=== PATIENT | male | born 1965 | race Caucasian/White ===

== ENCOUNTER → 2020-08-05 11:48 | Outpatient (BNVA) | payer OTHER, SELFPAY | PROVIDERS: PCP Internal Medicine; Visit Provider Physician Assistant | DX: Z76.89 Persons encountering health services in other specified circumstances (principal) ==

== ENCOUNTER 2020-08-25 06:23 | Outpatient (REF) | payer OTHER, SELFPAY ==
[2020-08-25 07:01] LABS: MANUAL DIFF FLAG NO
[2020-08-25 07:05] LABS: Basophils Percent Auto 0.4 % (0-2); Eosinophils Absolute Auto 0.1 X10*3/uL (0.0-0.4); Eosinophils Percent Auto 1.2 % (0-4); Hematocrit 37.1 % (42-52); Hemoglobin 12.6 g/dl (14.0-18.0); Imm Gran Abs Auto 0.04 X10*3/uL (0.00-0.03); Imm Gran Pct Auto 0.6 % (0.0-0.4); Lymphocytes Absolute Auto 1.6 X10*3/uL (1.2-4.9); Lymphocytes Percent Auto 22.6 % (20-40); Mean Corpuscular Hemoglobin 29.5 pg (27.0-33.0); Mean Corpuscular Volume 86.9 fL (80-98); Mean Platelet Volume 8.9 fL (9.4-12.4); Monocytes Absolute Auto 0.4 X10*3/uL (0.1-1.2); Monocytes Percent Auto 5.8 % (2-11); Neutrophils Absolute Auto 4.8 X10*3/uL (2.0-8.3); Neutrophils Percent Auto 69.4 % (45-73); Platelet Count 459 X10*3/uL (160-400); Red Blood Count 4.27 X10*6/uL (4.60-5.80); Red Cell Distribution Width 12.2 % (11.0-16.0); White Blood Count 6.9 X10*3/uL (4.8-10.8)
[2020-08-25 07:31] LABS: Alanine Aminotransferase 55 U/L (0-40); Albumin Level 4.5 g/dL (3.5-5.0); Alkaline Phosphatase 65 U/L (39-117); Aspartate Amino Transferase 20 U/L (5-37); Bilirubin Direct 0.2 mg/dL (0.0-0.5); Bilirubin Total 0.6 mg/dL (0.0-1.0); Total Protein 8.2 g/dL (6.5-8.0)
[2020-08-25 10:23] LABS: Anion Gap 19 (12-20); Calcium 8.3 mg/dL (8.4-10.2); Carbon Dioxide 20 mmol/L (22-29); Chloride 96 mmol/L (96-108); Cholesterol 241 mg/dL; Glucose Fasting 112 mg/dL (60-99); HDL Cholesterol 35 mg/dL; LDL Cholesterol Calculated 177 mg/dl; Potassium 4.4 mmol/l (3.3-5.1); Sodium 131 mmol/L (135-145); Triglycerides 147 mg/dL
[2020-08-25 11:55] LABS: Blood Urea Nitrogen 98 mg/dL (9-16); Estimated Glomerular Filt Rate 6
== END 2020-08-25 06:24 | disposition home or self-care (01) ==
LOC: HO.LAB 06:23
PROVIDERS: Nurse Practitioner Family; PCP Internal Medicine; Visit Provider Physician Assistant
DX: R55 Syncope and collapse (principal); N17.9 Acute kidney failure, unspecified; I10 Essential (primary) hypertension
CPT/HCPCS: 36415; 80048; 80061; 80076; 85025

== ENCOUNTER 2020-08-25 13:33 | Inpatient (IN) | payer OTHER, SELFPAY ==
[2020-08-25 13:42] VITALS: BP 133/89; PULSE 76; RESP 18; TEMP 36.6; O2SAT 98; BMI 32.6
--- NOTE | 2020-08-25 14:13 | CT_ITS ---
EXAMINATION: CT ABDOMEN AND PELVIS WITHOUT CONTRAST CLINICAL INFORMATION: Right flank pain. COMPARISON: CT abdomen and pelvis noncontrast 06/15/2020, CT abdomen and pelvis with intravenous contrast 11/02/2019. TECHNIQUE: Multidetector volumetric imaging was performed from the superior aspect of the liver through the pubic symphysis. Sagittal and coronal reformatted images were obtained on the technologist's workstation. No oral or intravenous contrast. This CT examination was performed using dose optimization techniques as appropriate, variously including the following: *Automated exposure control *Adjustment of mA and/or kV according to patient size (this includes techniques or standardized protocols for targeted exams where dose is matched to indication/reason for exam; i.e. extremities or head) *Use of iterative reconstruction technique DLP: 693 mGy-cm FINDINGS: LUNG BASES: There is subsegmental atelectasis right posterior medial base. No effusion. LIVER, GALLBLADDER, AND BILIARY TREE: The liver is normal in size, shape, and attenuation. No focal hepatic lesion or biliary ductal dilatation is present. The gallbladder is unremarkable with no evidence of radiopaque gallstones, gallbladder wall thickening, or obvious pericholecystic inflammatory changes. PANCREAS: Unremarkable. SPLEEN: Unremarkable. ADRENAL GLANDS: Normal. KIDNEYS AND URETERS: The kidneys are normal in size, shape, and attenuation. No hydronephrosis, hydroureter, or calculi seen. No perinephric stranding. BLADDER: Nondistended, otherwise unremarkable. GASTROINTESTINAL TRACT: There is prior gastric sleeve surgery. There are not no inflammatory changes in the bowel or interval inflammatory changes in the adjacent mesentery. The appendix is normal. There is no ascites or fluid collection. 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 ABDOMINAL WALL: No ventral hernia. Borderline bilateral fat-containing inguinal hernias. LYMPH NODES: No lymphadenopathy. VASCULAR: Unremarkable. PELVIC VISCERA: Unremarkable. OSSEOUS STRUCTURES: No acute bony abnormality. CT/CT abdomen pelvis wo con IMPRESSION: 1. No hydronephrosis, urinary tract calculi, or perinephric stranding. 2. No bowel obstruction or inflammatory changes in bowel. Normal appendix. No ascites. 3. No cholelithiasis or ductal dilatation.
--- NOTE | 2020-08-25 14:14 | ED_ITS ---
HPI - Recheck/Abnormal Lab/Rx General Chief Complaint: Recheck/Abnormal Lab/Rx Stated Complaint: Abnormal Labs Time Seen by Provider: 08/25/20 13:57 Source: patient Mode of arrival: ambulatory History of Present Illness HPI narrative: patient is a 55-year-old male with a past medical history of HTN, asthma and chronic constipation presents to the ER after his primary care doctor told him to come in due to abnormal labs. His BUN is 98 and his creatinine is 9.01. patient states he does not have any prostate issues, has not been taking NSAIDs and does not take lisinopril for his hypertension. He does endorse right flank pain, fatigue for the last few days, states he has vomited once 2 days ago and then 3 x 3 days ago, he also states he has had diarrhea 3 to 4 times a day for 5 days. Denies fever, chills, weakness, abdominal pain, bowel changes or blood in his urine. Related Data Home Medications Medication Instructions Recorded Confirmed cyanocobalamin (vitamin B-12) 1,000 mcg PO DAILY 08/23/20 08/23/20 1,000 mcg capsule docusate sodium 100 mg capsule 100 mg PO DAILY 08/23/20 08/23/20 escitalopram oxalate 10 mg tablet 10 mg PO DAILY 08/23/20 08/23/20 ferrous fumarate 325 mg (106 mg 325 mg PO DAILY tab 08/23/20 08/23/20 iron) tablet gabapentin 300 mg capsule 300 mg PO TID 08/23/20 08/23/20 hydroxyzine HCl 50 mg tablet 50 mg PO Q6-8H tab 08/23/20 08/23/20 linaclotide 290 mcg capsule 290 mcg PO DAILY 08/23/20 08/23/20 meclizine 25 mg tablet 25 mg PO DAILY 08/23/20 08/23/20 midodrine 2.5 mg tablet 2.5 mg PO TID tab 08/23/20 08/23/20 multivitamin 1 tab PO DAILY 08/23/20 08/23/20 pantoprazole 40 mg tablet,delayed 40 mg PO DAILY 08/23/20 08/23/20 release zolpidem 10 mg tablet 10 mg PO BEDTIME PRN 08/23/20 08/23/20 Previous Rx's Medication Instructions Recorded albuterol sulfate 90 mcg/actuation 2 puff INHALATION Q4-6H PRN 30 07/30/20 aerosol inhaler Days #6.7 g lubiprostone 8 mcg capsule 8 mcg PO BID #60 cap 08/15/20 acetaminophen 650 mg 650 mg PO Q12H PRN 10 Days #30 tab 08/23/20 tablet,extended release cyclobenzaprine 10 mg tablet 10 mg PO BEDTIME 30 Days #30 tab 08/23/20 Allergies Allergy/AdvReac Type Severity Reaction Status Date / Time ibuprofen [From MOTRIN] Allergy Intermediate STOMACH Verified 08/25/20 13:42 ULCER sertraline [From ZOLOFT] Allergy Intermediate PALPITATION Verified 08/25/20 13:42 S shellfish derived Allergy Intermediate NAUSEA/VOMI Verified 08/25/20 13:42 [SHELLFISH DERIVED] TING/FLUSHI NG naltrexone Allergy Unknown Nausea and Verified 08/25/20 13:42 Vomiting seafood Allergy Unknown Nausea and Verified 08/25/20 13:42 Vomiting Ibuprofen Allergy Unknown Stomach Uncoded 08/25/20 13:42 Upset Motrin Allergy Unknown heart races Uncoded 06/27/20 00:00 Review of Systems Review of Systems: Constitutional: No Weight loss, No Fever, No Chills, No Night Sweats, + Fatigue, No Malaise ENT/Mouth: No Hearing loss, No Ear Pain, No Nasal Congestion, No Sinus Pain, No Hoarseness, No sore throat, No Rhinorrhea, No Swallowing Difficulty Eyes: No Eye Pain, No Swelling, No Redness, No Foreign Body, No Discharge, No Vision Changes Cardiovascular: No Chest Pain, No SOB, No Dyspnea on Exertion, No Orthopnea, No Edema, No Palpitations Respiratory: No Cough, No Sputum, No Wheezing, No Smoke Exposure, No Dyspnea Gastrointestinal: No Nausea, + Vomiting, + Diarrhea, No Constipation, No abdominal Pain, No Hematochezia, No Melena Genitourinary: no irregular bleeding, No Dysuria, No Urinary Frequency, No Hematuria, No Urinary Incontinence, No Urgency, + right Flank Pain, No Urinary Flow Changes, No Hesitancy, no hematuria Musculoskeletal: No joint pain, No Myalgias, No Joint Swelling Skin: No Skin Lesions, No rash Neuro: No Weakness, No Numbness, No Paresthesias, No Loss of Consciousness, No Dizziness, No Headache Heme/Lymph: No Bruising, No Bleeding,No Lymphadenopathy Yes all other systems are reviewed and are negative [facility] Past Medical History Attestation statement: The following information was validated with the patient. Medical History Chronic constipation Hypertension Mild asthma Social History Social History Alcohol intake: former Smoking Status: Never smoker Use of substances other than those prescribed or required for medical reasons: No Advance Directives: No Advance Directives Information Provided: No Physical Exam Vital Signs: Vital Signs: Vital Signs Temp Pulse Resp BP Pulse Ox 08/25/20 15:07 97.8 F 71 18 142/91 H 98 08/25/20 13:42 97.8 F 76 18 133/89 98 Body Mass Index 32.6 Const: General: cooperative, healthy appearing, comfortable, no acute distress and well developed Nutritional Appearance: well nourished Orientation/consciousness: patient oriented x3 Limitations: no limitations HENMT: Head: Yes normal to inspection Face and sinus: Yes normal facial exam Mouth: mucous membranes dry Eyes: General: appearance normal, both eyes and all related structures Pupils: Equal, round and reactive pupils present Neck: Neck: Yes normal visual inspection, Yes full ROM and Yes supple Chest: Chest palpation & inspection: normal inspection of the chest Resp: Effort & Inspection: normal respiratory effort and able to speak in complete sentences Auscultation: clear to auscultation bilaterally, no crackles, no rales, no rhonchi and no wheezes Cardio: Rate: regular rate Rhythm: regular rhythm Heart sounds: normal S1 and S2 GI: Inspection: Yes normal to inspection Palpation (GI): Soft to palpation and nontender Auscultation: normal bowel sounds : General: Yes CVA tenderness (right side) Back/Spine/Pelvis: Back: CVA tenderness (right side) Skin: General skin exam: no rashes or lesions noted Neuro: General: patient oriented x3 Cranial nerves: Yes Equal, round and reactive pupils present Extrem: General: Yes normal to inspection, Yes full ROM and Yes no pedal edema Psych: Appearance: grossly normal Course Course Course Narrative: Patient is a 55-year-old male with a past medical history of HTN, asthma and chronic constipation who presents to the ED after having abnormal labs, BUN 98 creatinine 9.01. Patient endorses a history of recent diarrhea and vomiting for the past few days as well as right flank pain, denies fever or hematuria. physical exam reveals right-sided +CVA. will recheck all labs, add a urine sodium and get an abdominal CT scan. MDM - Recheck/Abnormal Lab/Rx MDM Narrative Medical decision making narrative: 55-year-old male with past medical history of hypertension, asthma and chronic constipation presents with elevated BUN/Cr. Patient denies any use of lisinopril, takes midodrine for his hypertension, denies any recent use of NSAIDs, does have a prescription for diclofenac gel, but states he does not take any oral medication that her NSAIDs, denies any urinary symptoms your trouble urinating, repeat labs show similar results, BUN 100, creatinine 9.01, CPK is 219, potassium is WNL at 4.9, Na is a tad low at 133, labs are otherwise unremarkable. patient currently getting 1 L IV fluids, UA negative, urine sodium WNL. Will need admission. Lab Data Attestation: I reviewed the patient's lab results. Result diagrams: 08/25/20 14:30 08/25/20 14:30 Labs: Lab Results 08/25/20 08/25/20 08/25/20 Range/Units 14:30 14:30 17:02 PT 12.7 (10.8-13.0) SEC INR 1.1 (0.9-1.1) APTT 34.5 (24.1-38.0) SEC Sodium 133 L (135-145) mmol/L Potassium 4.9 (3.3-5.1) mmol/l Chloride 98 (96-108) mmol/L Carbon Dioxide 20 L (22-29) mmol/L Anion Gap 20 (12-20) BUN 100 H* (9-16) mg/dL Creatinine 9.01 H* (0.5-1.4) mg/dL Estim Creat Clear Calc 10.4 Estimated GFR 6 Random Glucose 133 H (60-115) mg/dL Calcium 8.4 (8.4-10.2) mg/dL Magnesium 1.9 (1.6-2.6) mg/dL Total Creatine Kinase 219 H (38-174) U/L Urine Color STRAW Urine Appearance CLEAR Urine pH 5.5 (5.0-8.0) Ur Specific [place] 1.010 (1.005-1.025) Urine Protein NEG (NEG-TRACE) MG/DL Urine Glucose (UA) NEG (NEG) MG/DL Urine Ketones NEG (NEG) MG/DL Urine Blood 1+ H (NEG) Urine Nitrite NEG (NEG) Ur Leukocyte Esterase NEG (NEG) Urine RBC 0-2 (0) /HPF Urine WBC 0-2 (0-4) /HPF Ur Squamous Epith Cells NONE /LPF Urine Bacteria NONE /LPF Ur Random Sodium mmol/L Urine Opiates Screen (Not Detect) Ur Barbiturates Screen (Not Detect) Ur Phencyclidine Scrn (Not Detect) Ur Amphetamines Screen (Not Detect) U Benzodiazepines Scrn (Not Detect) Urine Cocaine Screen (Not Detect) U Marijuana (THC) Screen (Not Detect) 08/25/20 08/25/20 Range/Units 17:02 17:02 PT (10.8-13.0) SEC INR (0.9-1.1) APTT (24.1-38.0) SEC Sodium (135-145) mmol/L Potassium (3.3-5.1) mmol/l Chloride (96-108) mmol/L Carbon Dioxide (22-29) mmol/L Anion Gap (12-20) BUN (9-16) mg/dL Creatinine (0.5-1.4) mg/dL Estim Creat Clear Calc Estimated GFR Random Glucose (60-115) mg/dL Calcium (8.4-10.2) mg/dL Magnesium (1.6-2.6) mg/dL Total Creatine Kinase (38-174) U/L Urine Color Urine Appearance Urine pH (5.0-8.0) Ur Specific [place] (1.005-1.025) Urine Protein (NEG-TRACE) MG/DL Urine Glucose (UA) (NEG) MG/DL Urine Ketones (NEG) MG/DL Urine Blood (NEG) Urine Nitrite (NEG) Ur Leukocyte Esterase (NEG) Urine RBC (0) /HPF Urine WBC (0-4) /HPF Ur Squamous Epith Cells /LPF Urine Bacteria /LPF Ur Random Sodium 38.0 mmol/L Urine Opiates Screen Not Detected (Not Detect) Ur Barbiturates Screen Not Detected (Not Detect) Ur Phencyclidine Scrn Not Detected (Not Detect) Ur Amphetamines Screen Not Detected (Not Detect) U Benzodiazepines Scrn Not Detected (Not Detect) Urine Cocaine Screen Not Detected (Not Detect) U Marijuana (THC) Screen Not Detected (Not Detect) Discharge Plan Discharge Clinical Impression: JOHN (acute kidney injury) Patient Disposition: Admitted As Inpatient
[2020-08-25 14:44] LABS: INTERNATIONAL NORM RATIO 1.1 (0.9-1.1); Prothrombin Time 12.7 SEC (10.8-13.0)
[2020-08-25 14:46] LABS: Partial Thromboplastin Time 34.5 SEC (24.1-38.0)
[2020-08-25 15:07] VITALS: BP 142/91; PULSE 71; RESP 18; TEMP 36.6; O2SAT 98
[2020-08-25] MEDS: 0.9 % Sodium Chloride 1,000 ML 999 ML IVCONT (15:07)
[2020-08-25 15:28] LABS: Anion Gap 20 (12-20); Blood Urea Nitrogen 100 mg/dL (9-16); Calcium 8.4 mg/dL (8.4-10.2); Carbon Dioxide 20 mmol/L (22-29); Chloride 98 mmol/L (96-108); Creatinine Clr Calc Pharmacy 10.4; Estimated Glomerular Filt Rate 6; Glucose Random 133 mg/dL (60-115); Magnesium 1.9 mg/dL (1.6-2.6); Potassium 4.9 mmol/l (3.3-5.1); Sodium 133 mmol/L (135-145)
[2020-08-25 17:13] LABS: Glucose Urine UA NEG (NEG); Leukocyte Esterase Urine NEG (NEG); Nitrite Urine NEG (NEG); PH 5.5 (5.0-8.0); Urine Blood 1+ (NEG); Urine Ketones NEG (NEG); Urine Protein NEG (NEG-TRACE)
[2020-08-25 17:16] LABS: Appearance Urine CLEAR; Color Urine STRAW
[2020-08-25 17:25] LABS: RBC Urine 0-2 /HPF (0); WBC Urine 0-2 /HPF (0-4)
[2020-08-25 17:41] LABS: Amphetamine Screen Urine Not Detected (Not Detect); Barbiturates, Urine Not Detected (Not Detect); Benzodiazepines Screen Urine Not Detected (Not Detect); Cannabinoid Screen Urine Not Detected (Not Detect); Cocaine Screen Urine Not Detected (Not Detect); Opiate Screen Urine Not Detected (Not Detect); Phencyclidine Screen Urine Not Detected (Not Detect)
--- NOTE | 2020-08-25 18:03 | PM.IMHP ---
History of Present Illness Date of Service: 08/25/20 Chief Complaint: abnormal labs this is a 55-year-old Divehi-speaking male who presents to the emergency department with abnormal labs. Patient reports having a syncopal episode on August 14. He did not seek medical treatment at that time. Since then he seems to be having nausea intermittent vomiting and diarrhea. He denies any recent travel or takeout food. He reports intermittent episodes of dizziness and weakness. He reports drinking a lot of fluid. He also has complaints of numbness in random places including the right side of his head, left hand and right lower back. Was seen as an outpatient and had routine labs drawn which were noted to be significantly abnormal and therefore he was sent to the emergency department for evaluation. his creatinine was 9.01 with a BUN of 100. This is increased from a baseline of 1.5 - 2.4. he denies use of NSAIDs. In the emergency department he received a L of normal saline and the decision was made to admit him for further management Review of Systems Review of Systems: Yes all other systems are reviewed and are negative Constitutional: Constitutional: Denies chills and Denies fever(s) Cardiovascular: Cardiovascular: Denies dyspnea Respiratory: Respiratory: Denies dyspnea Gastrointestinal: Gastrointestinal: Reports diarrhea, Reports nausea and Reports vomiting PMFSH Medical History (Updated 08/25/20 @ 18:07 by MARY LOU Teran) Anxiety Chronic constipation Depression Hypertension Mild asthma Functional capacity: independent ambulation Family History (Updated 08/25/20 @ 18:15 by MARY LOU Teran) Father Diabetes Surgical History (Updated 08/25/20 @ 18:14 by MARY LOU Teran) History of sleeve gastrectomy Social History Alcohol intake: former Smoking Status: Never smoker Use of substances other than those prescribed or required for medical reasons: No Advance Directives: No Advance Directives Information Provided: No Meds Allergies Allergy/AdvReac Type Severity Reaction Status Date / Time ibuprofen [From MOTRIN] Allergy Intermediate STOMACH Verified 08/25/20 13:42 ULCER sertraline [From ZOLOFT] Allergy Intermediate PALPITATION Verified 08/25/20 13:42 S shellfish derived Allergy Intermediate NAUSEA/VOMI Verified 08/25/20 13:42 [SHELLFISH DERIVED] TING/FLUSHI NG naltrexone Allergy Unknown Nausea and Verified 08/25/20 13:42 Vomiting seafood Allergy Unknown Nausea and Verified 08/25/20 13:42 Vomiting Ibuprofen Allergy Unknown Stomach Uncoded 08/25/20 13:42 Upset Motrin Allergy Unknown heart races Uncoded 06/27/20 00:00 Home Medications Medication Instructions Recorded Confirmed Type cyanocobalamin (vitamin B-12) 1,000 mcg PO DAILY 08/23/20 08/25/20 History 1,000 mcg capsule docusate sodium 100 mg capsule 100 mg PO DAILY 08/23/20 08/25/20 History escitalopram oxalate 10 mg tablet 10 mg PO DAILY 08/23/20 08/25/20 History ferrous fumarate 325 mg (106 mg 325 mg PO DAILY tab 08/23/20 08/25/20 History iron) tablet hydroxyzine HCl 50 mg tablet 50 mg PO TID PRN tab 08/23/20 08/25/20 History midodrine 2.5 mg tablet 10 mg PO TID tab 08/23/20 08/25/20 History multivitamin 1 tab PO DAILY 08/23/20 08/25/20 History zolpidem 10 mg tablet 10 mg PO BEDTIME 08/23/20 08/25/20 History diclofenac sodium 2 g TOPICAL BID PRN 08/25/20 08/25/20 History venlafaxine 1 cap PO QAM 08/25/20 08/25/20 History Physical Exam Vital Signs and Narrative: Vital Signs: Last Vital Signs Temp 97.8 F 08/25/20 15:07 Pulse 71 08/25/20 15:07 Resp 18 08/25/20 15:07 BP 142/91 H 08/25/20 15:07 Pulse Ox 98 08/25/20 15:07 Body Mass Index 32.6 Const: Nutritional Appearance: well nourished Orientation/consciousness: patient oriented x3 HENMT: Head: Yes normocephalic and Yes atraumatic Eyes: Sclerae: sclerae normal Chest: Chest palpation & inspection: normal inspection of the chest Resp: Effort & Inspection: normal respiratory effort and no respiratory distress Auscultation: clear to auscultation bilaterally Cardio: Rate: regular rate Rhythm: regular rhythm GI: Palpation (GI): Soft to palpation and nontender Skin: General skin exam: no rashes or lesions noted Neuro: General: patient oriented x3 Cranial nerves: Yes CN's II-XII intact bilaterally and Yes Bilaterally intact EOM present Extrem: General: Yes normal to inspection Results Labs Labs: Laboratory Tests 08/25/20 08/25/20 08/25/20 14:30 14:30 17:02 PT 12.7 INR 1.1 APTT 34.5 Sodium 133 L Potassium 4.9 Chloride 98 Carbon Dioxide 20 L Anion Gap 20 BUN 100 H* Creatinine 9.01 H* Estim Creat Clear Calc 10.4 Estimated GFR 6 Random Glucose 133 H Calcium 8.4 Magnesium 1.9 Total Creatine Kinase 219 H Urine Color STRAW Urine Appearance CLEAR Urine pH 5.5 Ur Specific [place] 1.010 Urine Protein NEG Urine Glucose (UA) NEG Urine Ketones NEG Urine Blood 1+ H Urine Nitrite NEG Ur Leukocyte Esterase NEG Urine RBC 0-2 Urine WBC 0-2 Ur Squamous Epith Cells NONE Urine Bacteria NONE Ur Random Sodium Urine Opiates Screen Ur Barbiturates Screen Ur Phencyclidine Scrn Ur Amphetamines Screen U Benzodiazepines Scrn Urine Cocaine Screen U Marijuana (THC) Screen 08/25/20 08/25/20 17:02 17:02 PT INR APTT Sodium Potassium Chloride Carbon Dioxide Anion Gap BUN Creatinine Estim Creat Clear Calc Estimated GFR Random Glucose Calcium Magnesium Total Creatine Kinase Urine Color Urine Appearance Urine pH Ur Specific [place] Urine Protein Urine Glucose (UA) Urine Ketones Urine Blood Urine Nitrite Ur Leukocyte Esterase Urine RBC Urine WBC Ur Squamous Epith Cells Urine Bacteria Ur Random Sodium 38.0 Urine Opiates Screen Not Detected Ur Barbiturates Screen Not Detected Ur Phencyclidine Scrn Not Detected Ur Amphetamines Screen Not Detected U Benzodiazepines Scrn Not Detected Urine Cocaine Screen Not Detected U Marijuana (THC) Screen Not Detected Assessment and Plan (1) JOHN (acute kidney injury): Status: Acute this is a 55-year-old male who was sent from outpatient due to abnormal labs found to have JOHN JOHN on CKD3 potassium within normal limits CT scan shows no obstruction. No evidence of uremia - IV fluid - nephrology consult - avoid nephrotoxic medication - follow renal function closely diabetes does not appear to be on medication at home - we will follow point of care sugars mood will hold meds due to severe renal impairment can resume as renal function improves previous notes indicate history of dizziness and falls has had negative workup including outpatient EEG which was unremarkable DVT prophylaxis- mechanical devices code status- full code this case was discussed with Dr. Mobley
--- NOTE | 2020-08-25 18:15 | P.EN_ITS ---
Event Note Event Note: 55-year-old gentleman with multiple medical issues including history of anxiety depression, hypertension status post gastric sleeve surgery presented to [facility] due to symptoms of nausea, vomiting, diarrhea decrease appetite, lightheadedness, dizziness that has been chronic but worsened since last 10-12 days patient provide history of syncopal episode on 08/14 for which she did not pursue any medical help but was seen by covering PCP few days ago and had lab drawn that came back abnormal and was referred to emergency room in ER patient creatinine is 9 with a baseline creatinine of 1.3 with chronic kidney disease stage 3, patient has mild metabolic acidosis with normal anion gap and potassium. On examination blood pressure is stable lungs clear to auscultation extremities no edema neuro nonfocal acute on chronic kidney disease stage 3 nonoliguric Barry likely due to dehydration, with nausea ,vomiting and diarrhea CT scan showed no evidence of obstruction, will admit to intermediate care unit place patient on IV fluids follow electrolytes avoid nephrotoxins obtain nephrology consultation for further workup to rule out renal injury if there is no for improvement with iv hydration, patient has no symptoms of uremia and no hyperkalemia, repeat labs tonight and at a.m..
--- NOTE | 2020-08-25 20:25 | PC.NURSE ---
report called to oscar on c
[2020-08-25 20:45] VITALS: BP 146/88; PULSE 80; RESP 16; O2SAT 100
[2020-08-25 21:39] VITALS: BP 159/91; PULSE 67; RESP 20; TEMP 36.6; O2SAT 100
[2020-08-25] MEDS: 0.9 % Sodium Chloride 1,000 ML 150 ML IVCONT (21:40)
[2020-08-25 21:47] LABS: Glucose, Whole Blood 85 mg/dL (60-115)
[2020-08-25 21:49] LABS: SARS COV2 PCR INHOUSE NEGATIVE (Negative)
[2020-08-25 22:52] LABS: Anion Gap 18 (12-20); Blood Urea Nitrogen 93 mg/dL (9-16); Calcium 7.6 mg/dL (8.4-10.2); Carbon Dioxide 21 mmol/L (22-29); Chloride 101 mmol/L (96-108); Creatinine Clr Calc Pharmacy 11.8; Estimated Glomerular Filt Rate 7; Glucose Random 152 mg/dL (60-115); Potassium 4.7 mmol/l (3.3-5.1); Sodium 135 mmol/L (135-145)
[2020-08-25 23:28] VITALS: BMI 31.6
[2020-08-26] VITALS (12 sets, daily range): BP systolic 98–149; BP diastolic 66–89; PULSE 58–76; RESP 16–20; TEMP 36.4–36.8; O2SAT 98–100; BMI 31.6
[2020-08-26] MEDS: 0.9 % Sodium Chloride Flush 3 ML SYRINGE IVFLUSH (00:58)
[2020-08-26 05:33] LABS: MANUAL DIFF FLAG NO
[2020-08-26 06:18] LABS: Basophils Percent Auto 0.5 % (0-2); Eosinophils Absolute Auto 0.1 X10*3/uL (0.0-0.4); Eosinophils Percent Auto 1.2 % (0-4); Hematocrit 34.3 % (42-52); Hemoglobin 11.5 g/dl (14.0-18.0); Imm Gran Abs Auto 0.03 X10*3/uL (0.00-0.03); Imm Gran Pct Auto 0.5 % (0.0-0.4); Lymphocytes Absolute Auto 1.7 X10*3/uL (1.2-4.9); Lymphocytes Percent Auto 26.7 % (20-40); Mean Corpuscular HGB Conc 33.5 g/dl (31.0-36.0); Mean Corpuscular Hemoglobin 29.6 pg (27.0-33.0); Mean Corpuscular Volume 88.4 fL (80-98); Mean Platelet Volume 8.8 fL (9.4-12.4); Monocytes Absolute Auto 0.4 X10*3/uL (0.1-1.2); Monocytes Percent Auto 6.7 % (2-11); Neutrophils Absolute Auto 4.1 X10*3/uL (2.0-8.3); Neutrophils Percent Auto 64.4 % (45-73); Platelet Count 420 X10*3/uL (160-400); Red Blood Count 3.88 X10*6/uL (4.60-5.80); Red Cell Distribution Width 12.2 % (11.0-16.0); White Blood Count 6.4 X10*3/uL (4.8-10.8)
[2020-08-26 06:31] LABS: Anion Gap 17 (12-20); Blood Urea Nitrogen 89 mg/dL (9-16); Calcium 7.9 mg/dL (8.4-10.2); Carbon Dioxide 21 mmol/L (22-29); Chloride 103 mmol/L (96-108); Creatinine Clr Calc Pharmacy 12.9; Estimated Glomerular Filt Rate 8; Glucose Random 97 mg/dL (60-115); Phosphorus 5.7 mg/dL (2.7-4.5); Potassium 5.1 mmol/l (3.3-5.1); Sodium 136 mmol/L (135-145)
[2020-08-26] MEDS: Docusate Sodium 100 MG CAPSULE PO (07:36)
[2020-08-26] MEDS: Cyanocobalamin (Vitamin B-12) 1,000 MCG TABLET 1000 MCG PO (07:36)
[2020-08-26] MEDS: 0.9 % Sodium Chloride 1,000 ML 150 ML IVCONT (07:37)
[2020-08-26] MEDS: Acetaminophen 325 MG TABLET 650 MG PO (07:43)
[2020-08-26 07:50] LABS: Glucose, Whole Blood 82 mg/dL (60-115)
--- NOTE | 2020-08-26 09:05 | MHC.CM.PN ---
Patient lives alone in an apartment and he uses a walker to assist with mobility. Patient's goal is to return home and CM has initiated and will follow for dc planning. Patient has a Son, who will assist with transport to home.PCP is Dr. Emma Pickard.
--- NOTE | 2020-08-26 09:40 | HO.PM.IMPN ---
Subjective Subjective Date of Service: 08/26/20 <MARY LOU Teran Last Filed: 08/26/20 12:09> Interval History: Nausea, vomiting, diarrhea improving. Ongoing numbness in right scalp, left hand. Ongoing dizziness which he reports is chronic as well as back pain which is also chronic. <MARY LOU Teran - Last Filed: 08/26/20 12:09> Review of Systems Review of Systems: Yes all other systems are reviewed and are negative <MARY LOU Teran Last Filed: 08/26/20 12:09> Constitutional Constitutional: Denies chills and Denies fever(s) <MARY LOU Teran Last Filed: 08/26/20 12:09> Cardiovascular Cardiovascular: Denies chest pain <MARY LOU Teran Last Filed: 08/26/20 12:09> Respiratory Respiratory: Denies cough <MARY LOU Teran Last Filed: 08/26/20 12:09> Gastrointestinal Gastrointestinal: Denies abdominal pain <MARY LOU Teran Last Filed: 08/26/20 12:09> Physical Exam Vital Signs: Vital Signs: Vital Signs Temp Pulse Resp BP Pulse Ox 08/26/20 07:34 97.5 F 62 18 127/80 100 08/26/20 03:44 98.3 F 63 20 140/89 H 100 08/26/20 00:16 98.1 F 66 20 146/88 H 98 08/25/20 21:39 97.9 F 67 20 159/91 H 100 08/25/20 20:45 80 16 146/88 H 100 08/25/20 15:07 97.8 F 71 18 142/91 H 98 08/25/20 13:42 97.8 F 76 18 133/89 98 Body Mass Index 31.6 <MARY LOU Teran Last Filed: 08/26/20 12:09> Const: Nutritional Appearance: well nourished <MARY LOU Teran Last Filed: 08/26/20 12:09> Orientation/consciousness: patient oriented x3 <MARY LOU Teran Last Filed: 08/26/20 12:09> HENMT: Head: Yes normocephalic and Yes atraumatic <MARY LOU Teran - Last Filed: 08/26/20 12:09> Eyes: Sclerae: sclerae normal <MARY LOU Teran - Last Filed: 08/26/20 12:09> Chest: Chest palpation & inspection: normal inspection of the chest <MARY LOU Teran - Last Filed: 08/26/20 12:09> Resp: Effort & Inspection: normal respiratory effort and no respiratory distress <MARY LOU Teran - Last Filed: 08/26/20 12:09> Auscultation: clear to auscultation bilaterally <MARY LOU Teran - Last Filed: 08/26/20 12:09> Cardio: Rate: regular rate <MARY LOU Teran - Last Filed: 08/26/20 12:09> Rhythm: regular rhythm <MARY LOU Teran - Last Filed: 08/26/20 12:09> GI: Palpation (GI): Soft to palpation and nontender <MARY LOU Teran - Last Filed: 08/26/20 12:09> Skin: General skin exam: no rashes or lesions noted <MARY LOU Teran - Last Filed: 08/26/20 12:09> Neuro: General: patient oriented x3 <MARY LOU Teran - Last Filed: 08/26/20 12:09> Cranial nerves: Yes CN's II-XII intact bilaterally and Yes Bilaterally intact EOM present <MARY LOU Teran - Last Filed: 08/26/20 12:09> Extrem: General: Yes normal to inspection <MARY LOU Teran - Last Filed: 08/26/20 12:09> Objective Data Current Medications Generic Name Dose Route Start Last Admin Trade Name Freq PRN Reason Stop Dose Admin Acetaminophen 650 mg 08/25/20 21:28 08/26/20 07:43 Acetaminophen 325 Mg Tablet PO 650 mg Q6H PRN Administration Pain, Mild (Pain Scale 1-3) Albuterol Sulfate 2 puff 08/25/20 21:28 Albuterol Sulfate 90 Mcg 8 Gm Inhaler INHALE Q4H PRN shortness of breath or wheezing Cyanocobalamin 1,000 mcg 08/26/20 09:00 08/26/20 07:36 Cyanocobalamin (Vitamin B-12) 1,000 Mcg Tablet PO 1,000 mcg DAILY PAULA Administration Docusate Sodium 100 mg 08/25/20 21:28 Docusate Sodium 100 Mg Capsule PO DAILY PRN Constipation Docusate Sodium 100 mg 08/26/20 09:00 08/26/20 07:36 Docusate Sodium 100 Mg Capsule PO 100 mg DAILY PAULA Administration Sodium Chloride 1,000 mls @ 150 mls/hr 08/25/20 21:28 08/26/20 07:37 Ns IVCONT 150 mls/hr .Q6H40M PAULA Administration Ondansetron HCl 4 mg 08/25/20 21:28 Ondansetron Hcl 4 Mg/2 Ml Vial IVPUSH Q8H PRN Nausea and Vomiting Pharmacy Consult 1 each 08/25/20 18:19 Consult Rx Perform Med Rec MISCELLANE ONCE PRN Consult order Sodium Chloride 3 ml 08/26/20 00:00 08/26/20 07:35 0.9 % Sodium Chloride Flush 3 Ml Syringe IVFLUSH Not Given QSHIFT PAULA <MARY LOU Teran - Last Filed: 08/26/20 12:09> Labs CBC & Chem 7: : 08/27/20 04:54 08/27/20 06:28 <MARY LOU Teran - Last Filed: 08/26/20 12:09> Assessment and Plan (1) JOHN (acute kidney injury): Status: Acute <MARY LOU Teran - Last Filed: 08/26/20 12:09> Assessment and Plan: this is a 55-year-old male who was sent from outpatient due to abnormal labs found to have JOHN JOHN on CKD3 SCr improved from 9.01 to 7.17. Bicarb 21. K 5.1 CT scan shows no obstruction. No evidence of uremia - continue IVF - nephrology consult pendiing - avoid nephrotoxic medication - continue to trend renal function diabetes Not on medication at home -POCs under 150 -Check HbA1c mood meds on hold due to severe renal impairment can resume as renal function improves dizziness. chronic. has had negative workup including outpatient EEG which was unremarkable -Will check orthostatic vitals, if positive will resume lower dose of midodrine Numbness does not follow neurological distribution ? related to electrolyte abnormalities/JOHN DVT prophylaxis- mechanical devices code status- full code this case was discussed with Dr. Mobley <MARY LOU Teran - Last Filed: 08/26/20 12:09>
[2020-08-26 09:44] LABS: Estimated Average Glucose 117 mg/dL; Hemoglobin A1c % 5.7 %
[2020-08-26 11:39] LABS: Glucose, Whole Blood 71 mg/dL (60-115)
[2020-08-26] MEDS: Calcium Acetate 667 MG CAPSULE PO ×2 (11:44→16:00)
[2020-08-26] MEDS: Lidocaine 4 % Patch ADH..PATCH 1 PATCH TRANSDERMA (12:09)
[2020-08-26] MEDS: Midodrine HCl 2.5 MG TABLET PO ×2 (15:50→21:54)
[2020-08-26 16:37] LABS: Glucose, Whole Blood 94 mg/dL (60-115)
[2020-08-26] MEDS: 0.9 % Sodium Chloride 1,000 ML 100 ML IVCONT (16:54)
--- NOTE | 2020-08-26 17:28 | CONS_ITS ---
DATE OF SERVICE: 08/26/2020 REASON FOR CONSULTATION: I was called to see this patient to assist in the management of acute kidney injury. HISTORY OF PRESENT ILLNESS: To summarize, Gordon is a 55-year-old man with history of obesity, diabetes mellitus, chronic kidney disease, baseline creatinine of around 1.7 mg/dL. He has a history of gastric sleeve for weight loss and he has had few episodes of acute kidney injury. He was admitted in May with acute kidney injury, which resolved and the renal function was back to baseline. He is currently being admitted because of abnormal labs. He underwent routine lab work, which showed BUN of 100, creatinine 9.01. He was admitted yesterday. He has been given IV fluids. Initially, his blood pressure was acceptable, but he did have low blood pressure. He has been on midodrine to combat hypotension. He denies any use of NSAIDs. No nausea or vomiting. No diarrhea. No constipation. No polyuria or polydipsia. Since admission, the serum creatinine has decreased down to 7.4 with hydration and he has no specific complaints at present. REVIEW OF SYSTEMS: As per history and physical. All other systems were reviewed and negative. PAST MEDICAL HISTORY: Ongoing medical problems include history of obesity, chronic kidney disease stage 3, hypertension, diabetes mellitus, obstructive sleep apnea, anxiety, and depression. PAST SURGICAL HISTORY: Includes laparoscopic gastric sleeve and gastropexy in 2018. SOCIAL HISTORY: History of alcohol abuse in the past. He does not take alcohol and he does not smoke at present. ALLERGIES: HE IS ALLERGIC TO SERTRALINE, NALTREXONE. HE DOES NOT TAKE ANY NSAIDS. MEDICATIONS: At home included vitamin B12, escitalopram, midodrine 2.5 mg t.i.d., zolpidem, diclofenac topical preparation, venlafaxine. PHYSICAL EXAMINATION: GENERAL: Gordon is a middle-aged man, is obese, comfortable, not in any distress. NECK: Supple. No JVD. HEENT: Mucosa is dry. LUNGS: Air entry equal. No rales. HEART: S1, S2 heard. No gallop. No rub. ABDOMEN: Soft, nontender. Bowel sounds heard. NEURO: Alert, awake, oriented. No asterixis. EXTREMITIES: No dependent edema. No rash. No clubbing. VITAL SIGNS: Today, the blood pressure was 100/70, he is afebrile with a pulse of 58 per minute. LABORATORY DATA: All the lab results were reviewed. Hemoglobin 11.5, platelets 420, potassium 5.1, BUN 89, creatinine 7.17, phosphorus 5.7, calcium 8.0. Urine specific gravity 1.010, 1+ blood, no rbc's seen. IMPRESSION: 1. Acute kidney injury, most likely due to hypoperfusion. Obstruction seems unlikely based on the imaging studies. The urine sediments are bland and glomerular disease seem unlikely at this time. 2. Anemia. 3. Mild hypercalcemia with hyperphosphatemia most likely due to secondary hyperparathyroidism. RECOMMENDATIONS: My recommendation is to obtain a spot urine for sodium, creatinine, and protein. I agree with IV hydration. Maintain systolic blood pressure more than 100 mmHg. Agree with midodrine. If he has significant proteinuria, we will continue with further workup. At the present time, there is no absolute indication for dialysis. As for hyperphosphatemia, we will add calcium acetate as a binder and check intact PTH as well. Kailn Hernandez MD BPA/MODL / [id number]
[2020-08-26 21:21] LABS: Glucose, Whole Blood 113 mg/dL (60-115)
[2020-08-26] MEDS: diphenhydrAMINE HCL 25 MG TABLET PO (21:54)
[2020-08-27] VITALS (8 sets, daily range): BP systolic 119–153; BP diastolic 71–86; PULSE 58–78; RESP 18; TEMP 36.6–36.8; O2SAT 95–100
[2020-08-27] MEDS: 0.9 % Sodium Chloride Flush 3 ML SYRINGE IVFLUSH ×2 (00:24→23:40)
[2020-08-27] MEDS: 0.9 % Sodium Chloride 1,000 ML 100 ML IVCONT ×3 (02:37→21:45)
[2020-08-27 07:23] LABS: Glucose, Whole Blood 80 mg/dL (60-115)
[2020-08-27] MEDS: Cyanocobalamin (Vitamin B-12) 1,000 MCG TABLET 1000 MCG PO (08:57)
[2020-08-27] MEDS: Calcium Acetate 667 MG CAPSULE PO ×3 (08:58→17:24)
[2020-08-27] MEDS: Lidocaine 4 % Patch ADH..PATCH 1 PATCH TRANSDERMA (08:59)
[2020-08-27 11:08] LABS: MANUAL DIFF FLAG NO
[2020-08-27 11:11] LABS: Basophils Percent Auto 0.3 % (0-2); Eosinophils Absolute Auto 0.1 X10*3/uL (0.0-0.4); Eosinophils Percent Auto 1.5 % (0-4); Hematocrit 32.6 % (42-52); Hemoglobin 10.8 g/dl (14.0-18.0); Imm Gran Abs Auto 0.02 X10*3/uL (0.00-0.03); Imm Gran Pct Auto 0.3 % (0.0-0.4); Lymphocytes Absolute Auto 1.8 X10*3/uL (1.2-4.9); Lymphocytes Percent Auto 30.8 % (20-40); Mean Corpuscular HGB Conc 33.1 g/dl (31.0-36.0); Mean Corpuscular Hemoglobin 29.8 pg (27.0-33.0); Mean Corpuscular Volume 89.8 fL (80-98); Mean Platelet Volume 8.9 fL (9.4-12.4); Monocytes Absolute Auto 0.4 X10*3/uL (0.1-1.2); Neutrophils Absolute Auto 3.6 X10*3/uL (2.0-8.3); Neutrophils Percent Auto 61.1 % (45-73); Platelet Count 410 X10*3/uL (160-400); Red Blood Count 3.63 X10*6/uL (4.60-5.80); Red Cell Distribution Width 12.3 % (11.0-16.0)
[2020-08-27] MEDS: Docusate Sodium 100 MG CAPSULE PO (11:47)
[2020-08-27 12:13] LABS: Glucose, Whole Blood 80 mg/dL (60-115)
[2020-08-27 12:48] LABS: Anion Gap 14 (12-20); Blood Urea Nitrogen 71 mg/dL (9-16); Calcium 7.8 mg/dL (8.4-10.2); Carbon Dioxide 22 mmol/L (22-29); Chloride 105 mmol/L (96-108); Glucose Random 86 mg/dL (60-115); Potassium 4.9 mmol/l (3.3-5.1); Sodium 136 mmol/L (135-145)
[2020-08-27 12:49] LABS: Creatinine Clr Calc Pharmacy 18.1; Estimated Glomerular Filt Rate 12
--- NOTE | 2020-08-27 15:05 | P.PNIM_ITS ---
Subjective Subjective Date of Service: 08/27/20 Interval History: patient complaining of persistent ongoing numbness right side of the scalp but feels it is getting better, complaining of numbness left hand fingers as well as right-sided lower back, patient denies nausea vomiting diarrhea no new issues overnight. Review of Systems General no headache , Complaining of dizziness (ch), no fever chills. CVS no chest pain, no palpitation. Respiratory no cough, no shortness of breath Gastrointestinal no nausea no vomiting, no abdominal pain Physical Exam Vital Signs: Vital Signs: Vital Signs Temp Pulse Resp BP Pulse Ox 08/27/20 12:00 98.1 F 60 18 134/86 100 08/27/20 09:01 58 140/78 H 08/27/20 08:00 98.1 F 58 18 140/78 H 99 08/27/20 04:00 97.9 F 60 18 119/71 98 08/26/20 23:58 97.9 F 67 18 133/75 99 08/26/20 21:54 67 136/89 08/26/20 19:06 97.5 F 67 16 136/80 99 08/26/20 15:50 62 126/66 08/26/20 15:47 98.0 F 62 18 126/66 99 Body Mass Index 31.6 General patient resting comfortably in no acute distress. Neck is supple no JVD. CVS regular rate rhythm, Respiratory lungs clear to auscultation, no respiratory distress, no wheeze, no rhonchi. Gastrointestinal abdomen soft, nontender, bowel sounds audible. Extremities no clubbing cyanosis or edema. 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 Skin no rash Objective Data Current Medications Generic Name Dose Route Start Last Admin Trade Name Freq PRN Reason Stop Dose Admin Acetaminophen 650 mg 08/25/20 21:28 08/26/20 07:43 Acetaminophen 325 Mg Tablet PO 650 mg Q6H PRN Administration Pain, Mild (Pain Scale 1-3) Albuterol Sulfate 2 puff 08/25/20 21:28 Albuterol Sulfate 90 Mcg 8 Gm Inhaler INHALE Q4H PRN shortness of breath or wheezing Calcium Acetate 667 mg 08/26/20 12:00 08/27/20 11:47 Calcium Acetate 667 Mg Capsule PO 667 mg TIDWM PAULA Administration Cyanocobalamin 1,000 mcg 08/26/20 09:00 08/27/20 08:57 Cyanocobalamin (Vitamin B-12) 1,000 Mcg Tablet PO 1,000 mcg DAILY PAULA Administration Diphenhydramine HCl 25 mg 08/26/20 11:57 08/26/20 21:54 Diphenhydramine Hcl 25 Mg Tablet PO 25 mg BEDTIME PRN Administration sleep Docusate Sodium 100 mg 08/25/20 21:28 Docusate Sodium 100 Mg Capsule PO DAILY PRN Constipation Docusate Sodium 100 mg 08/26/20 09:00 08/27/20 11:47 Docusate Sodium 100 Mg Capsule PO 100 mg DAILY PAULA Administration Sodium Chloride 1,000 mls @ 100 mls/hr 08/25/20 21:28 08/27/20 12:54 Ns IVCONT 100 mls/hr .Q10H PAULA Administration Lidocaine 1 patch 08/26/20 12:15 08/27/20 08:59 Lidocaine 4 % Patch Adh..Patch TRANSDERMA 1 patch DAILY PAULA Administration Protocol Midodrine 2.5 mg 08/26/20 15:00 08/27/20 09:01 Midodrine Hcl 2.5 Mg Tablet PO Not Given TID PAULA Ondansetron HCl 4 mg 08/25/20 21:28 Ondansetron Hcl 4 Mg/2 Ml Vial IVPUSH Q8H PRN Nausea and Vomiting Pharmacy Consult 1 each 08/25/20 18:19 Consult Rx Perform Med Rec MISCELLANE ONCE PRN Consult order Sodium Chloride 3 ml 08/26/20 00:00 08/27/20 08:57 0.9 % Sodium Chloride Flush 3 Ml Syringe IVFLUSH Not Given QSHIFT [facility] Labs CBC & Chem 7: 08/27/20 04:54 08/27/20 06:28 Assessment and Plan (1) JOHN (acute kidney injury): Status: Acute (2) Hypertension: Status: Acute (3) Chronic constipation: Status: Acute (4) Dizziness: Status: Acute Assessment and Plan: JOHN on CKD3 SCr improved from 9.01 to 7.17 to 5 today, no acidosis or hyperkalemia. CT scan of abdomen shows no obstruction. No evidence of uremia, will continue IVF, patient seen by Dr. Hernandez he agrees with above treatment urine spot creatinine protein and sodium ordered today will avoid nephrotoxic medication and hypotension follow renal function closely diabetes Not on medication at home, hemoglobin A1c 5.7 blood sugars stable likely blood sugar improved with weight reduction mood meds on hold due to severe renal impairment, patient was on venlafaxine, Ambien, hydroxyzine at home, will resume as renal function improves dizziness. chronic. has had negative workup including outpatient EEG which was unremarkable, orthostatic studies came back positive , will repeat orthostatic studies after IV hydration, continue midodrine 2.5 t.i.d. Numbness does not follow neurological distribution,? related to electrolyte abnorm alities/JOHN DVT prophylaxis- mechanical devices code status- full code
[2020-08-27 16:34] LABS: Glucose, Whole Blood 81 mg/dL (60-115)
--- NOTE | 2020-08-27 16:34 | PM.PNNEP ---
Subjective Subjective Interval history: Events noted Feels better No N/V Physical Exam Vital Signs: Vital Signs: Vital Signs Temp Pulse Resp BP Pulse Ox 08/27/20 15:08 98.3 F 63 18 136/79 95 08/27/20 12:00 98.1 F 60 18 134/86 100 08/27/20 09:01 58 140/78 H 08/27/20 08:00 98.1 F 58 18 140/78 H 99 08/27/20 04:00 97.9 F 60 18 119/71 98 08/26/20 23:58 97.9 F 67 18 133/75 99 08/26/20 21:54 67 136/89 08/26/20 19:06 97.5 F 67 16 136/80 99 Body Mass Index 31.6 Const: General: cooperative Orientation/consciousness: oriented to person Chest: Chest palpation & inspection: normal inspection of the chest Resp: Auscultation: clear to auscultation bilaterally Cardio: Jugular venous distension: no JVD Heart sounds: no gallops, no murmurs and no rubs GI: Inspection: Yes normal to inspection Palpation (GI): Soft to palpation Neuro: General: oriented to person Motor exam (neuro): no asterixis Assessment & Plan Assessment and plan (1) JOHN (acute kidney injury): Problem details: Superimposed on CKD No s/s of uremia Cr improving Keep I >O Status: Acute Time Spent With Patient Time: Total time spent is greater than 50% in coordination of care (as documented) at patient's floor/unit and/or counseling patient:
[2020-08-27 17:02] LABS: Total Protein Urine Random < 7 mg/dL (<12)
[2020-08-27 17:09] LABS: Creatinine Urine 40.76 mg/dL
[2020-08-27 21:15] LABS: Glucose, Whole Blood 104 mg/dL (60-115)
[2020-08-28 04:00] VITALS: BP 126/73; PULSE 59; RESP 18; TEMP 37.2; O2SAT 97
[2020-08-28] MEDS: 0.9 % Sodium Chloride 1,000 ML 100 ML IVCONT ×2 (06:23→15:33)
[2020-08-28 07:28] LABS: Anion Gap 13 (12-20); Blood Urea Nitrogen 54 mg/dL (9-16); Calcium 7.6 mg/dL (8.4-10.2); Carbon Dioxide 21 mmol/L (22-29); Chloride 109 mmol/L (96-108); Creatinine Clr Calc Pharmacy 25.7; Estimated Glomerular Filt Rate 18; Glucose Random 86 mg/dL (60-115); Potassium 4.6 mmol/l (3.3-5.1); Sodium 138 mmol/L (135-145)
[2020-08-28 07:48] LABS: Glucose, Whole Blood 85 mg/dL (60-115)
[2020-08-28 08:00] VITALS: BP 155/95; PULSE 67; RESP 18; TEMP 36.2; O2SAT 100
[2020-08-28 09:03] VITALS: BP 155/95; PULSE 67
[2020-08-28] MEDS: Cyanocobalamin (Vitamin B-12) 1,000 MCG TABLET 1000 MCG PO (09:03)
[2020-08-28] MEDS: Docusate Sodium 100 MG CAPSULE PO (09:03)
[2020-08-28] MEDS: Lidocaine 4 % Patch ADH..PATCH 1 PATCH TRANSDERMA (09:03)
[2020-08-28] MEDS: Calcium Acetate 667 MG CAPSULE PO ×3 (09:03→17:01)
[2020-08-28] MEDS: 0.9 % Sodium Chloride Flush 3 ML SYRINGE IVFLUSH (09:03)
--- NOTE | 2020-08-28 09:52 | PM.PNNEP ---
Subjective Subjective Interval history: Events noted Feels better No N/V Creatinine is trending down Physical Exam Vital Signs: Vital Signs: Vital Signs Temp Pulse Resp BP Pulse Ox 08/28/20 09:03 67 155/95 H 08/28/20 08:00 97.2 F 67 18 155/95 H 100 08/28/20 04:00 98.9 F 59 18 126/73 97 08/27/20 22:56 97.8 F 78 18 131/76 99 08/27/20 19:53 98 F 65 18 153/79 H 100 08/27/20 17:25 136/79 08/27/20 15:08 98.3 F 63 18 136/79 95 08/27/20 12:00 98.1 F 60 18 134/86 100 Body Mass Index 31.6 Const: General: cooperative Orientation/consciousness: oriented to person Chest: Chest palpation & inspection: normal inspection of the chest Resp: Auscultation: clear to auscultation bilaterally Cardio: Jugular venous distension: no JVD Heart sounds: no gallops, no murmurs and no rubs GI: Inspection: Yes normal to inspection Palpation (GI): Soft to palpation Neuro: General: oriented to person Motor exam (neuro): no asterixis Assessment & Plan Assessment and plan (1) JOHN (acute kidney injury): Problem details: Superimposed on CKD No s/s of uremia Cr improving Keep I >O Status: Acute Time Spent With Patient Time: Total time spent is greater than 50% in coordination of care (as documented) at patient's floor/unit and/or counseling patient:
[2020-08-28 11:34] LABS: Glucose, Whole Blood 82 mg/dL (60-115)
[2020-08-28 11:38] VITALS: BP 135/98; PULSE 77; RESP 18; TEMP 36.3; O2SAT 100
--- NOTE | 2020-08-28 11:45 | PC.NURSE ---
Pt orthostatics this morning: Standing: HR 71, BP 152/93 , Sitting: HR 72 BP 157/91 , Laying: HR 69 BP 168/82 . Results discussed with Dr. Mobley.
--- NOTE | 2020-08-28 14:55 | P.PNIM_ITS ---
Subjective Subjective Date of Service: 08/28/20 Interval History: patient overall feeling better still complaining of left hand finger numbness and also complaining of left lower back pain with radiation to thigh that he has for a while that comes and goes. Otherwise no acute issues overnight tolerating diet with no nausea vomiting. Review of Systems General no headache , less dizziness CVS no chest pain, no palpitation. Respiratory no cough no sputum production, no respiratory distress. Gastrointestinal no nausea ,no vomiting, no abdominal pain Physical Exam Vital Signs: Vital Signs: Vital Signs Temp Pulse Resp BP Pulse Ox 08/28/20 11:38 97.3 F 77 18 135/98 H 100 08/28/20 09:03 67 155/95 H 08/28/20 08:00 97.2 F 67 18 155/95 H 100 08/28/20 04:00 98.9 F 59 18 126/73 97 08/27/20 22:56 97.8 F 78 18 131/76 99 08/27/20 19:53 98 F 65 18 153/79 H 100 08/27/20 17:25 136/79 Body Mass Index 31.6 General patient resting comfortably in no acute distress. Neck is supple no JVD. CVS regular rate rhythm, Respiratory lungs clear to auscultation, no respiratory distress, no wheeze, no rhonchi. Gastrointestinal abdomen soft, nontender, bowel sounds audible. Extremities no clubbing cyanosis or edema. 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 musculoskeletal no CVA tenderness, good range of motion right hip Skin no rash Objective Data Current Medications Generic Name Dose Route Start Last Admin Trade Name Freq PRN Reason Stop Dose Admin Acetaminophen 650 mg 08/25/20 21:28 08/26/20 07:43 Acetaminophen 325 Mg Tablet PO 650 mg Q6H PRN Administration Pain, Mild (Pain Scale 1-3) Albuterol Sulfate 2 puff 08/25/20 21:28 Albuterol Sulfate 90 Mcg 8 Gm Inhaler INHALE Q4H PRN shortness of breath or wheezing Calcium Acetate 667 mg 08/26/20 12:00 08/28/20 11:32 Calcium Acetate 667 Mg Capsule PO 667 mg TIDWM PAULA Administration Cyanocobalamin 1,000 mcg 08/26/20 09:00 08/28/20 09:03 Cyanocobalamin (Vitamin B-12) 1,000 Mcg Tablet PO 1,000 mcg DAILY PAULA Administration Diphenhydramine HCl 25 mg 08/26/20 11:57 08/26/20 21:54 Diphenhydramine Hcl 25 Mg Tablet PO 25 mg BEDTIME PRN Administration sleep Docusate Sodium 100 mg 08/25/20 21:28 Docusate Sodium 100 Mg Capsule PO DAILY PRN Constipation Docusate Sodium 100 mg 08/26/20 09:00 08/28/20 09:03 Docusate Sodium 100 Mg Capsule PO 100 mg DAILY PAULA Administration Sodium Chloride 1,000 mls @ 100 mls/hr 08/25/20 21:28 08/28/20 06:23 Ns IVCONT 100 mls/hr .Q10H PAULA Administration Lidocaine 1 patch 08/26/20 12:15 08/28/20 09:03 Lidocaine 4 % Patch Adh..Patch TRANSDERMA 1 patch DAILY PAULA Administration Protocol Midodrine 2.5 mg 08/26/20 15:00 08/28/20 09:03 Midodrine Hcl 2.5 Mg Tablet PO Not Given TID PAULA Ondansetron HCl 4 mg 08/25/20 21:28 Ondansetron Hcl 4 Mg/2 Ml Vial IVPUSH Q8H PRN Nausea and Vomiting Pharmacy Consult 1 each 08/25/20 18:19 Consult Rx Perform Med Rec MISCELLANE ONCE PRN Consult order Sodium Chloride 3 ml 08/26/20 00:00 08/28/20 09:03 0.9 % Sodium Chloride Flush 3 Ml Syringe IVFLUSH 3 ml QSHIFT PAULA Administration Labs CBC & Chem 7: 08/27/20 04:54 08/28/20 06:29 Assessment and Plan (1) JOHN (acute kidney injury): Problem details: Superimposed on CKD No s/s of uremia Cr improving Keep I >O Status: Acute (2) Hypertension: Status: Acute (3) Chronic constipation: Status: Acute (4) Dizziness: Status: Acute Assessment and Plan: JOHN on CKD3 SCr improved from 9.01 to 7.17 to 3.6 today, no acidosis or hyperkalemia. CT scan of abdomen shows no obstruction. No evidence of uremia, will continue IVF, normal saline patient seen by Dr. Hernandez he agrees with above treatment urine spot creatinine 40.7, protein not significantly elevated and sodium 69 will avoid nephrotoxic medication and hypotension follow renal function closely, if creatinine trends down to less than 3 patient can be discharged home with outpatient follow-up with Nephrology diabetes Not on medication at home, hemoglobin A1c 5.7 blood sugars stable likely blood sugar improved with weight reduction mood meds on hold due to severe renal impairment, patient was on venlafaxine, Ambien, hydroxyzine at home, will resume as renal function improves dizziness. chronic. has had negative workup including outpatient EEG which was unremarkable, orthostatic studies came back positive initially repeat orthostatic studies are normal therefore will discontinue midodrine hand and scalp Numbness does not follow neurological distribution,? related to electrolyte abnormalities/JOHN right-sided lower back pain likely related to lumbar radiculopathy it seems chronic intermittent issue recommended outpatient PCP follow-up, unable to give NSAIDs due to renal insufficiency will use hot pack. DVT prophylaxis- mechanical devices code status- full code
[2020-08-28 15:53] VITALS: BP 145/98; PULSE 69; RESP 18; TEMP 36.5; O2SAT 100
[2020-08-28 16:31] LABS: Glucose, Whole Blood 101 mg/dL (60-115)
[2020-08-28 20:00] VITALS: BP 118/67; PULSE 68; RESP 20; TEMP 36.8; O2SAT 100
[2020-08-28 21:32] LABS: Glucose, Whole Blood 87 mg/dL (60-115)
[2020-08-29] VITALS: BP 138/76; PULSE 62; RESP 18; TEMP 36.9; O2SAT 98
[2020-08-29 03:26] VITALS: BP 117/64; PULSE 64; RESP 20; TEMP 36.8; O2SAT 97
[2020-08-29 06:04] LABS: Anion Gap 16 (12-20); Blood Urea Nitrogen 51 mg/dL (9-16); Calcium 8.1 mg/dL (8.4-10.2); Carbon Dioxide 22 mmol/L (22-29); Chloride 106 mmol/L (96-108); Creatinine Clr Calc Pharmacy 29.1; Estimated Glomerular Filt Rate 20; Glucose Random 85 mg/dL (60-115); Potassium 4.8 mmol/l (3.3-5.1); Sodium 139 mmol/L (135-145)
[2020-08-29 07:50] LABS: Glucose, Whole Blood 81 mg/dL (60-115)
[2020-08-29 08:00] VITALS: BP 139/88; PULSE 76; RESP 20; TEMP 36.8; O2SAT 100
[2020-08-29] MEDS: 0.9 % Sodium Chloride Flush 3 ML SYRINGE IVFLUSH (08:38)
[2020-08-29] MEDS: Calcium Acetate 667 MG CAPSULE PO (08:38)
[2020-08-29] MEDS: Docusate Sodium 100 MG CAPSULE PO (08:38)
[2020-08-29] MEDS: Cyanocobalamin (Vitamin B-12) 1,000 MCG TABLET 1000 MCG PO (08:38)
[2020-08-29] MEDS: Lidocaine 4 % Patch ADH..PATCH 1 PATCH TRANSDERMA (08:38)
--- NOTE | 2020-08-29 11:02 | P.PNNP_ITS ---
Subjective Subjective Interval history: Seen and examined. Feeling better and wants to go home Physical Exam Vital Signs: Vital Signs: Vital Signs Temp Pulse Resp BP Pulse Ox 08/29/20 08:00 98.3 F 76 20 139/88 100 08/29/20 03:26 98.2 F 64 20 117/64 97 08/29/20 00:00 98.4 F 62 18 138/76 98 08/28/20 20:00 98.3 F 68 20 118/67 100 08/28/20 15:53 97.7 F 69 18 145/98 H 100 08/28/20 11:38 97.3 F 77 18 135/98 H 100 Body Mass Index 31.6 General patient resting comfortably in no acute distress. Neck is supple no JVD. CVS regular rate rhythm, Respiratory lungs clear to auscultation, no respiratory distress, no wheeze, no rhonchi. Gastrointestinal abdomen soft, nontender, bowel sounds audible. Extremities no clubbing cyanosis or edema. 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 musculoskeletal no CVA tenderness, good range of motion right hip Skin no rash Const: General: cooperative, healthy appearing, comfortable, no acute distress and well developed Nutritional Appearance: well nourished Orientation/consciousness: oriented to person and patient oriented x3 Limitations: no limitations HENMT: Head: Yes normal to inspection, Yes normocephalic and Yes atraumatic Face and sinus: Yes normal facial exam Mouth: mucous membranes dry Eyes: General: appearance normal, both eyes and all related structures Sclerae: sclerae normal Pupils: Equal, round and reactive pupils present Neck: Neck: Yes normal visual inspection, Yes full ROM and Yes supple Chest: Chest palpation & inspection: normal inspection of the chest Resp: Effort & Inspection: normal respiratory effort, able to speak in co mplete sentences and no respiratory distress Auscultation: clear to auscultation bilaterally, no crackles, no rales, no rhonchi and no wheezes Cardio: Jugular venous distension: no JVD Rate: regular rate Rhythm: regular rhythm Heart sounds: no gallops, no murmurs, no rubs and normal S1 and S2 GI: Inspection: Yes normal to inspection Palpation (GI): Soft to palpation and nontender Auscultation: normal bowel sounds : General: Yes CVA tenderness (right side) Back/Spine/Pelvis: Back: CVA tenderness (right side) Skin: General skin exam: no rashes or lesions noted Neuro: General: oriented to person and patient oriented x3 Cranial nerves: Yes CN's II-XII intact bilaterally, Yes Equal, round and reactive pupils present and Yes Bilaterally intact EOM present Motor exam (neuro): no asterixis Extrem: General: Yes normal to inspection, Yes full ROM and Yes no pedal edema Psych: Appearance: grossly normal Assessment & Plan Assessment and plan (1) JOHN (acute kidney injury): Problem details: Superimposed on CKD No s/s of uremia Cr improving Keep I >O Status: Acute (2) Hypertension: Status: Acute (3) Chronic constipation: Status: Acute (4) Dizziness: Status: Acute Assessment and Plan: 1. JOHN: etiol remains unclear but signif improvement with IVF c/w componenet of pre-renal despite FENa not < 1% and de;ayed rapid recovey c/w ATN and may take a bit longer to completely recover; interstingly he has had recurrent epsdioeds of JOHN but not this bad in the past 2. CKD 3: bsl SCr 1.3-1.6 range 3. H/O OH and maintained on midrdine REC: ok to d/c home with pushing PO fluids and needs repeat labs in 2 days and urgent F/U with Dr Hernandez on Saturday ( I will arrange the latter) code status- full code Time Spent With Patient Time: Total time spent is greater than 50% in coordination of care (as documented) at patient's floor/unit and/or counseling patient:
[2020-08-29 11:41] LABS: Glucose, Whole Blood 74 mg/dL (60-115)
--- NOTE | 2020-08-29 11:58 | PM.DS ---
DS: Providers Provider Date of admission: 08/25/20 18:00 Primary care physician: Emma Mc MD Consults: 08/25/20 21:28 Consult to Nephrology Routine Consulting Provider: Kalin Hernandez Reason for consultation: john Has provider been notified: No DS: Diagnosis Discharge Diagnosis (1) JOHN (acute kidney injury): Status: Acute Problem details: Superimposed on CKD No s/s of uremia Cr improving Keep I >O (2) Hypertension: Status: Acute (3) Chronic constipation: Status: Acute (4) Dizziness: Status: Acute DS: Summary Hospital Course Hospital Course: Chief Complaint: abnormal labs this is a 55-year-old Cuban-speaking male who presents to the emergency department with abnormal labs. Patient reports having a syncopal episode on August 14. He did not seek medical treatment at that time. Since then he seems to be having nausea intermittent vomiting and diarrhea. He denies any recent travel or takeout food. He reports intermittent episodes of dizziness and weakness. He reports drinking a lot of fluid. He also has complaints of numbness in random places including the right side of his head, left hand and right lower back. Was seen as an outpatient and had routine labs drawn which were noted to be significantly abnormal and therefore he was sent to the emergency department for evaluation. his creatinine was 9.01 with a BUN of 100. This is increased from a baseline of 1.5 - 2.4. he denies use of NSAIDs. In the emergency department he received a L of normal saline and the decision was made to admit him for further management Medical History Anxiety Chronic constipation Depression Hypertension Mild asthma JOHN on CKD3 with baseline creatinine 1.6 SCr improved from 9.01 to 7.17 to 3.19, no acidosis or hyperkalemia. CT scan of abdomen shows no obstruction. No evidence of uremia, patient treated with IV fluid , patient tolerating by mouth fairly well no history of nausea vomiting but patient has chronic intermittent diarrhea likely JOHN due to hypovolemia/ATN since patient is hemodynamically stable will discharge patient home, will repeat BMP in next few days, nephrology will follow patient closely within a week, will hold all home medications due to poor creatinine clearance strongly recommend to abstain from NSAIDs diabetes Not on medication at home, hemoglobin A1c 5.7 blood sugars stable likely blood sugar improved with weight reduction mood all medications held due to severe renal impairment, patient was on venlafaxine, Ambien, hydroxyzine and escitalopram at home, patient had no withdrawal symptoms may resume medications once renal function improves dizziness. chronic. has had negative workup including outpatient EEG which was unremarkable, orthostatic studies came back positive initially repeat orthostatic studies are normal. hand and scalp Numbness significantly improved likely related to electrolyte abnormalities and John right-sided lower back pain likely related to lumbar radiculopathy it seems chronic intermittent issue recommended outpatient PCP follow-up, unable to give NSAIDs due to renal insufficiency, recommend to use K-pad symptoms improved at the time of discharge patient ambulating with no difficulty. Time Spent with Patient Time attestation: Total time spent providing and/or coordinating discharge services: Physical Exam Vital Signs: Vital Signs: Vital Signs Temp Pulse Resp BP Pulse Ox 08/29/20 08:00 98.3 F 76 20 139/88 100 08/29/20 03:26 98.2 F 64 20 117/64 97 08/29/20 00:00 98.4 F 62 18 138/76 98 08/28/20 20:00 98.3 F 68 20 118/67 100 08/28/20 15:53 97.7 F 69 18 145/98 H 100 Body Mass Index 31.6 General patient resting comfortably in no acute distress. Neck is supple no JVD. CVS regular rate rhythm, Respiratory lungs clear to auscultation, no respiratory distress, no wheeze, no rhonchi. Gastrointestinal abdomen soft, nontender, bowel sounds audible. Extremities no clubbing cyanosis or edema. left hand normal hand [employer] Neuro nonfocal musculoskeletal no CVA tenderness, good range of motion right hip Skin no rash DS: Data Data Completed and Pending Labs on day of discharge: Labs from last 24 hours 08/29/20 08/29/20 08/29/20 11:30 07:35 04:28 Sodium 139 Potassium 4.8 Chloride 106 Carbon Dioxide 22 Anion Gap 16 BUN 51 H Creatinine 3.19 H Estim Creat Clear Calc 29.1 Estimated GFR 20 POC Glucose 74 81 Random Glucose 85 Calcium 8.1 L 08/28/20 08/28/20 21:28 16:26 Sodium Potassium Chloride Carbon Dioxide Anion Gap BUN Creatinine Estim Creat Clear Calc Estimated GFR POC Glucose 87 101 Random Glucose Calcium Discharge Plan Discharge Patient Disposition: Home, Self-Care Referrals: Emma Epps MD [Primary Care Provider] - Discharge Medications: New lidocaine [Lidocaine Pain Relief] 4 % Adhesive Patch,Medicated 1 patch transdermal DAILY Qty: 14 RF: 0 diphenhydramine HCl [Allergy Relief(diphenhydramin)] 25 mg Tablet 25 mg PO BEDTIME PRN (Reason: sleep) Qty: 30 RF: 0 calcium acetate(phosphat bind) 667 mg Capsule 667 mg PO TIDWM Qty: 90 RF: 0 acetaminophen 325 mg Tablet 650 mg PO Q8H PRN (Reason: Pain, Mild (Pain Scale 1-3)) Qty: 60 RF: 0 Continued albuterol sulfate [Ventolin HFA] 90 mcg/actuation HFA aerosol inhaler 2 puff inhalation Q4-6H PRN (Reason: shortness of breath or wheezing) 30 Days Qty: 6.7 RF: 6 diclofenac sodium 1 % gel 2 g topical BID PRN (Reason: Pain) RF: 0 cyanocobalamin (vitamin B-12) 1,000 mcg capsule 1,000 mcg PO DAILY RF: 0 multivitamin [Daily-Hammad] Tablet 1 tab PO DAILY RF: 0 ferrous fumarate 325 mg (106 mg iron) tablet 325 mg PO DAILY RF: 0 Discontinued lubiprostone [Amitiza] 8 mcg capsule 8 mcg PO BID Qty: 60 RF: 3 venlafaxine 37.5 mg capsule,extended release 24hr 1 cap PO QAM RF: 0 docusate sodium [Colace] 100 mg capsule 100 mg PO DAILY RF: 0 zolpidem 10 mg tablet 10 mg PO BEDTIME RF: 0 escitalopram oxalate 10 mg tablet 10 mg PO DAILY RF: 0 hydroxyzine HCl 50 mg tablet 50 mg PO TID PRN (Reason: Anxiety) RF: 0 midodrine 2.5 mg tablet 10 mg PO TID RF: 0 acetaminophen [Tylenol Arthritis Pain] 650 mg tablet extended release 650 mg PO Q12H PRN (Reason: pain) 10 Days Qty: 30 RF: 0 cyclobenzaprine 10 mg tablet 10 mg PO BEDTIME 30 Days Qty: 30 RF: 0 Discharge Orders: Discharge Order (Routine); Ordered 08/29/20 Ordered By: Joss Mobley Diet: low fat, low cholesterol Activity on Discharge: As tolerated Discharge Date/Time: 08/29/20 17:02 Other Ambulatory Orders: Basic Metabolic Panel (Routine) Timeframe: 3 Days Facility: [facility] - Location: Laboratory Ordered By: Joss Mobley Visit Report Forms: Patient Portal Discharge page Care Plan Goals: outpatient follow-up with Nephrology, do not take any medications before consulting with physician due to poor kidney function. Health Concerns: check labs done in 3 days as ordered Plan of Treatment: outpatient follow-up with PCP and Nephrology in minimize medications and do not take medications that causes diarrhea.
[2020-08-29 12:00] VITALS: BP 143/92; PULSE 74; RESP 20; TEMP 36.8; O2SAT 99
--- NOTE | 2020-08-29 12:04 | MHC.CM.PN ---
Patient has been medically cleared for dc to home today, no services.
[2020-08-29 15:08] VITALS: BP 134/63; PULSE 71; RESP 18; TEMP 36.8; O2SAT 95
[2020-08-31 21:48] LABS: Calcium (PTHI) 8.4 mg/dL (8.6-10.3); PTHI 204 pg/mL (14-64)
== END 2020-08-29 17:02 | disposition home or self-care (01) | DRG 469 ==
LOC: HO.ED 18:15 → HO.IMC 20:00
PROVIDERS: Internal Medicine Hypertension Specialist; Physician Assistant; Physician Assistant Medical; Admitting Provider Hospitalist; Emergency Provider Emergency Medicine; PCP Internal Medicine; Visit Provider Hospitalist
DX: N17.9 Acute kidney failure, unspecified (principal); E11.22 Type 2 diabetes mellitus with diabetic chronic kidney disease; F32.9 Major depressive disorder, single episode, unspecified; F41.9 Anxiety disorder, unspecified; F10.11 Alcohol abuse, in remission; D63.1 Anemia in chronic kidney disease; E83.52 Hypercalcemia; E83.39 Other disorders of phosphorus metabolism; M54.16 Radiculopathy, lumbar region; I12.9 Hypertensive chronic kidney disease with stage 1 through stage 4 chronic kidney disease, or unspecified chronic kidney disease; E86.0 Dehydration; N18.30 Chronic kidney disease, stage 3 unspecified; Z20.828 Contact with and (suspected) exposure to other viral communicable diseases; Z98.84 Bariatric surgery status; Z88.6 Allergy status to analgesic agent; Z79.899 Other long term (current) drug therapy
CPT/HCPCS: 36415; 74176; 80048; 80061; 80076; 80307; 81001; 82310; 82550; 82947; 83036; 83735; 83970; 84100; 84156; 84300; 85025; 85610; 85730; 90686; 96360; 99225; 99232; 99285; Q0163; U0003

== ENCOUNTER → 2020-08-30 11:43 | Outpatient (BNVA) | payer OTHER, SELFPAY | PROVIDERS: PCP Internal Medicine; Referring Provider Internal Medicine; Visit Provider Nurse Practitioner Family | DX: I95.1 Orthostatic hypotension (principal); N17.9 Acute kidney failure, unspecified; I12.9 Hypertensive chronic kidney disease with stage 1 through stage 4 chronic kidney disease, or unspecified chronic kidney disease; N18.9 Chronic kidney disease, unspecified; Z79.899 Other long term (current) drug therapy | CPT/HCPCS: 99212 ==

== ENCOUNTER 2020-08-31 15:47 | Outpatient (REF) | payer OTHER, SELFPAY ==
[2020-08-31 17:22] LABS: Anion Gap 14 (12-20); Blood Urea Nitrogen 40 mg/dL (9-16); Calcium 8.7 mg/dL (8.4-10.2); Carbon Dioxide 26 mmol/L (22-29); Chloride 101 mmol/L (96-108); Estimated Glomerular Filt Rate 23; Glucose Random 90 mg/dL (60-115); Potassium 4.6 mmol/l (3.3-5.1); Sodium 136 mmol/L (135-145)
== END 2020-08-31 15:48 | disposition home or self-care (01) ==
LOC: HO.LAB 15:47
PROVIDERS: PCP Internal Medicine; Visit Provider Hospitalist
DX: N17.9 Acute kidney failure, unspecified (principal)
CPT/HCPCS: 80048

== ENCOUNTER 2020-09-12 10:26 | Outpatient (REF) | payer OTHER, SELFPAY ==
[2020-09-12 12:03] LABS: Anion Gap 15 (12-20); Blood Urea Nitrogen 20 mg/dL (9-16); Calcium 8.7 mg/dL (8.4-10.2); Carbon Dioxide 25 mmol/L (22-29); Chloride 101 mmol/L (96-108); Estimated Glomerular Filt Rate 33; Glucose Fasting 121 mg/dL (60-99); Potassium 4.9 mmol/l (3.3-5.1); Sodium 136 mmol/L (135-145)
== END 2020-09-12 10:27 | disposition home or self-care (01) ==
LOC: HO.LAB 10:26
PROVIDERS: PCP Internal Medicine; Visit Provider Nurse Practitioner Family
DX: N17.9 Acute kidney failure, unspecified (principal)
CPT/HCPCS: 80048

== ENCOUNTER → 2020-10-03 11:20 | Outpatient (BNVA) | payer OTHER, SELFPAY | PROVIDERS: PCP Internal Medicine; Referring Provider Internal Medicine; Visit Provider Nurse Practitioner Family ==

== ENCOUNTER → 2020-10-03 11:20 | Outpatient (BNVA) | payer OTHER, SELFPAY | PROVIDERS: PCP Internal Medicine; Referring Provider Internal Medicine; Visit Provider Nurse Practitioner Family | DX: Z76.89 Persons encountering health services in other specified circumstances (principal) ==